=== PATIENT | female | born 1970 | race Caucasian/White ===

== ENCOUNTER 2017-01-14 16:10 | Emergency (ER) ==
[2017-01-14 16:21] VITALS: BP 144/78; TEMP 98.6; BMI 40.2
--- NOTE | 2017-01-14 16:32 | ED.PDOC ---
General ED Provider: Dr. GAYATHRI RAYMOND-ER Chief Complaint: Earache Stated Complaint: chris got a pus in my ear and in my back Time Seen by Physician: 16:31 Mode of Arrival: Walk-In Information Source: Patient, Family Exam Limitations: No limitations Nursing and Triage Documentation Reviewed and Agree: Yes Skin Complaint Exam - Skin/Soft Tissue Complaint/Exam Onset/Duration: 4 days Symptoms Are: Still present Timing: Constant Initial Severity: Mild Current Severity: Mild Location: right ext canal and lower back Character: Reports: Redness, Swelling, Raised, Painful Aggravating: Reports: Touch Alleviating: Reports: None Associated Signs and Symptoms: Reports: Drainage, Tenderness Related Surgical History: Reports: None Recent Exposure to Others w/Similar Symptoms: No Skin Findings: Present: Fluctuant mass, Pustules Joint Tenderness Present: No Differential Diagnoses: Infection Review of Systems - Review Of Systems Constitutional: Reports: No symptoms Eyes: Reports: No symptoms Ears, Nose, Mouth, Throat: Reports: No symptoms Respiratory: Reports: No symptoms Cardiac: Reports: No symptoms GI: Reports: No symptoms : Reports: No symptoms Musculoskeletal: Reports: No symptoms Skin: Reports: Lumps Neurological: Reports: No symptoms Endocrine: Reports: No symptoms Hematologic/Lymphatic: Reports: No symptoms All Other Systems: Reviewed and Negative Past Medical History - Past Medical History Endocrine: Reports: Unknown Cardiovascular: Reports: Unknown Respiratory: Reports: Unknown Hematological: Reports: Unknown Gastrointestinal: Reports: Unknown Genitourinary: Reports: Unknown Neuro/Psych: Reports: Unknown Musculoskeletal: Reports: Unknown Cancer: Reports: Unknown Last Menstrual Period: 04/18 - Surgical History General Surgical History: Reports: Unknown - Family History Family History: Reports: Unknown - Social History Smoking Status: Never smoker Hx Substance Use: No Alcohol Screening: None Lives: With family Physical Exam - Physical Exam Appearance: Well-appearing, No pain distress, Well-nourished Eyes: SABINO, EOMI, Conjunctiva clear ENT: Ears normal, Nose normal, Oropharynx normal Neck: Supple Respiratory: Airway patent, Breath sounds clear, Breath sounds equal, Respirations nonlabored Cardiovascular: RRR, Pulses normal, No rub, No murmur GI/: Soft, Nontender, No masses, Bowel sounds normal, No Organomegaly Musculoskeletal: Normal strength, ROM intact, No edema, No calf tenderness Skin: Warm, Dry (noted pustule right ear canal and lower back) Neurological: Sensation intact, Motor intact, Reflexes intact, Cranial nerves intact, Alert, Oriented Psychiatric: Affect appropriate, Mood appropriate Critical Care Note - Critical Care Note Total Time (mins): 0 Course - Course Vital Signs: Temp Pulse Resp BP Pulse Ox 01/14/17 16:12 98.6 F 91 H 16 144/78 H 95 Departure - Departure Time of Disposition: 16:33 Disposition: HOME SELF-CARE Discharge Problem: Skin pustule, Abscess Instructions: Abscess (ED) Condition: Good Pt referred to PMD for follow-up: Yes Additional Instructions: wash with dial soap and water daily and apply bacitracin ointment bid --- clindamycin 150mg tid x 7 days--f/u with pcp Allergies/Adverse Reactions: Allergies Penicillins Adverse Reaction (Verified 01/14/17 16:16) Home Medications: Ambulatory Orders Insulin Glargine,Hum.rec.anlog [Lantus] 32 unit SUBCUT BEDTIME 01/14/17 Disposition Discussed With: Patient, Family
== END 2017-01-14 16:42 | disposition home or self-care (01) ==
LOC: ED 16:10
DX: L02.212 Cutaneous abscess of back [any part, except buttock and flank] (principal); H60.01 Abscess of right external ear
CPT/HCPCS: 99282